=== PATIENT | female | born 1975 | race African-American/Black ===

== ENCOUNTER → 2016-07-04 | Outpatient (CLI) | payer OTHER ==
[~2016-07-04] MED LIST: ACET325T14 PO; BIOTIN PO; CHLO50TA PO; CIPR250T27 PO; CLON0.1T PO; LISI-170 PO; OXYC-302 PO
== END | disposition home or self-care (01) ==
LOC: LAB 11:56
PROVIDERS: ATTEND Nurse Practitioner Primary Care
DX: E87.6 Hypokalemia (principal)
CPT/HCPCS: 36415; 84132

== ENCOUNTER → 2017-05-06 | Outpatient (CLI) | payer OTHER ==
[2017-05-06 11:14] LABS: MEAN CORPUSCULAR HEMOGLOBIN 27.6 pg (27.0-34.8); MEAN CORPUSCULAR HGB CONC 32.9 g/dL (32.4-35.8); MEAN PLATELET VOLUME 7.4 fL (7.4-10.4); PLATELET COUNT 354 x10^3/uL (130-400)
[2017-05-06 11:30] LABS: CHLORIDE 105 mmol/L (98-107)
[2017-05-06 11:39] LABS: % IRON SATURATION 13 % (20-55); ALANINE AMINOTRANSFERASE 14 U/L (12-78); ALBUMIN 3.6 g/dL (3.4-5.0); ALKALINE PHOSPHATASE 49 U/L (45-117); ANION GAP 8 mmol/L (5-15); BILIRUBIN,TOTAL 0.4 mg/dL (0.2-1.0); CALCIUM 8.7 mg/dL (8.5-10.1); CHOL/HDL RATIO 3.6; CHOLESTEROL, TOTAL 208 mg/dL (140-239); CREATININE 1.04 mg/dL (0.55-1.02); HDL CHOL % 27 % (28-40); HDL CHOLESTEROL (DIRECT) 57 mg/dL (40-60); IRON LEVEL 48 mcg/dL (50-170); LDL CHOLESTEROL,CALCULATED 117 mg/dL (54-169); LDL/HDL RATIO 2.1 (0.5-3.0); TOTAL IRON BINDING CAPACITY 363 mcg/dL (250-450); TOTAL PROTEIN 7.9 g/dL (6.4-8.2); TRIGLYCERIDES 171 mg/dL (50-200); VLDL CHOLESTEROL 34 mg/dL (0-25)
== END | disposition home or self-care (01) ==
LOC: LAB 11:04
PROVIDERS: ATTEND Nurse Practitioner Primary Care
DX: I10 Essential (primary) hypertension (principal); E78.5 Hyperlipidemia, unspecified; D50.9 Iron deficiency anemia, unspecified; E87.6 Hypokalemia; R06.02 Shortness of breath
CPT/HCPCS: 36415; 80053; 80061; 82306; 82728; 83540; 83550; 85027